=== PATIENT | female | born 1940 | race Caucasian/White ===

== ENCOUNTER 2020-12-27 12:52 | Inpatient (IN) | payer MEDICARE, SELFPAY ==
[~2020-12-27] VITALS: Ht 157.5 cm; Wt 68.1 kg
--- NOTE | 2020-12-27 12:52 | NUR ---
BIB MEDICS FROM HOME FOR CP/ ALERT, CALM, RESP UNLABORED, SKIN WARM AND DRY.
[2020-12-27 12:56] VITALS: BP_SYST 189
--- NOTE | 2020-12-27 13:00 | NUR ---
Patient to ER bed 4 to gown for evaluation. Side rails up. Report given to .
--- NOTE | 2020-12-27 13:15 | NUR ---
DR VYAS IN TO ASSESS
--- NOTE | 2020-12-27 13:26 | NUR ---
CXR, LABS OBTAINED, CALM, ALERT, RESP UNLABORED,
--- NOTE | 2020-12-27 13:48 | NUR ---
IV HL 22 GUAGE LT HAND, LABS SENT
[2020-12-27 13:49] LABS: EOSINOPHILS % (AUTO) 0.9 % (0.0-4.0); HEMATOCRIT 37.9 % (36-48); HEMOGLOBIN 12.9 g/dL (12.0-16.0); LYMPHOCYTES # (AUTO) 0.7 K/uL (1.0-5.5); LYMPHOCYTES % (AUTO) 27.8 % (20.5-51.5); MEAN CORPUSCULAR HEMOGLOBIN 30 pg (27-31); MEAN CORPUSCULAR HGB CONC 34 % (32-36); MEAN CORPUSCULAR VOLUME 89 fL (79.0-98.0); MONOCYTES # (AUTO) 0.5 K/uL (0.0-1.0); MONOCYTES % (AUTO) 19.3 % (1.7-9.3); NEUTROPHILS # (AUTO) 1.2 K/uL (1.8-7.7); PLATELET COUNT (AUTO) 137 K/uL (130-430); RED BLOOD CELL COUNT(AUTO) 4.25 MIL/uL (4.2-6.2); RED CELL DISTRIBUTION WIDTH 15.7 % (9.0-15.0); WHITE BLOOD COUNT (AUTO) 2.4 K/uL (4.8-10.8)
--- NOTE | 2020-12-27 13:52 | NUR ---
SITTING UP TALKING ON , NO DISTRESS, RESP UNLABORED. NO DISTRESS
[2020-12-27 13:55] LABS: ANION GAP 8 (5-15); CALCIUM 9.9 mg/dL (8.4-11.0); CHLORIDE 100 mmol/L (98-107); CREATININE 1.02 mg/dL (0.55-1.30); GLUCOSE 111 mg/dL (70-99); POTASSIUM 4.4 mmol/L (3.5-5.1); SODIUM SERUM 135 mmol/L (136-145); UREA NITROGEN, BLOOD 25 mg/dL (8-21)
[2020-12-27 14:01] LABS: ALANINE AMINOTRANSFERASE 24 U/L (12-78); ASPARTATE AMINOTRANSFERASE 35 U/L (10-37); LIPASE 189 U/L (73-393); TOTAL BILIRUBIN 0.4 mg/dL (0.0-1.0)
[2020-12-27] MEDS ORDERED: MORPHINE 2 MG/ML INJ. SYRINGE IVP ONE ×2 (15:15→21:45)
--- NOTE | 2020-12-27 16:24 | NUR ---
CONSENT SIGNED FOR CTA
[2020-12-27] MEDS ORDERED: IOHEXOL 350 mgI/mL, 150 ML INFUS..BTL IV ONE (16:39)
--- NOTE | 2020-12-27 17:13 | NUR ---
BACK FROM CTA OF CHEST. TOLERATED WELL. RESP UNLABORED
[2020-12-27] MEDS ORDERED: MORPHINE 4 MG INJ. 4 MG/ML VIAL IVP ONE (17:45)
--- NOTE | 2020-12-27 19:04 | NUR ---
UP TO BSC PT BEARING WEIGHT, CALM, ALERT, RESP UNLABORED, SB ON MONITOR
[2020-12-27] MEDS ORDERED: cefTRIAXone 1 GM in D5W 50 ML IV ONE (19:15)
[2020-12-27] MEDS ORDERED: AZITHROMYCIN 500 MG in NS 250 ML IV ONE (19:15)
--- NOTE | 2020-12-27 19:25 | NUR ---
assumed care of pt from alma dia. pt started on rocephin and zithromax
[2020-12-27] MEDS ORDERED: AZITHROMYCIN 500 MG/VIAL (ZITHROMAX) IV ONE (19:32)
[2020-12-27] MEDS ORDERED: cefTRIAXone 1 GM VIAL ONE (19:32)
[2020-12-27] MEDS ORDERED: CALCIUM CARBONATE 500 MG/ TAB.CHEW PO ONE (22:45)
[2020-12-27] MEDS ORDERED: FAMOTIDINE 20 MG TABLET ONE (23:29)
[2020-12-27] MEDS ORDERED: FAMOTIDINE 20 MG TABLET PO ONE (23:30)
[2020-12-28] MEDS ORDERED: LevALBUTEROL HCL 1.25 MG/0.5 ML *CONC.* VIAL.NEB (XOPENEX CONC.) INH PRN (00:15)
--- NOTE | 2020-12-28 00:22 | NUR ---
Patient will be admitted to care of DR. BASS. Admitted to TELE unit. Will go to room TBD. Belongings list completed. Complete and up to date summary report printed. SBAR report to be given at bedside with opportunity for questions.
--- NOTE | 2020-12-28 00:30 | NUR ---
PTS BELONGINGS LIST COMPLETE.
--- NOTE | 2020-12-28 00:30 | NUR ---
PT DOES NOT HAVE MEDICATION LIST. WILL HAVE IT TOMORROW
--- NOTE | 2020-12-28 00:30 | NUR ---
PT IS FULLCODE
--- NOTE | 2020-12-28 01:15 | NUR ---
Transfer to TELE 123B via ACLS protocol. Licensed nurse present. IV present no signs or symptoms of infiltration.
--- NOTE | 2020-12-28 01:29 | NUR ---
Admission Note Received patient from ER with diagnosis of PNA. Initial Plan of Care discussed-patient verbalized understanding. Oriented to room, call light, pain management and safety.
[2020-12-28 01:54] VITALS: BP_SYST 155
[2020-12-28 01:58] VITALS: BP_SYST 151
--- NOTE | 2020-12-28 04:00 | NUR ---
ROUNDS PATIENT ASLEEP, NO SIGNS OF DISCOMFORT. CHEST RISE AND FALL EVEN BILATERALLY. CALL LIGHT WITH PATIENT. WILL CONTINUE TO MONITOR.
--- NOTE | 2020-12-28 06:35 | NUR ---
CLOSING NOTES PATIENT IN BED, SLEEPING COMFORTABLY. NO S/S OF ACUTE DISTRESS. BREATHING EVEN AND UNLABORED. IV SITE REMAINS PATENT, NO SIGNS OF INFILTRATION OR INFECTION NOTED. ALL NEEDS MET THROUGHOUT SHIFT. FALL, SAFETY, AND ISOLATION PRECAUTIONS MAINTAINED THROUGHOUT SHIFT. WILL CONTINUE TO MONITOR UNTIL PATIENT CARE IS ENDORSED TO ONCOMING DAYSHIFT NURSE.
[2020-12-28 06:45] LABS: BASOPHILS % (AUTO) 1.3 % (0.0-2.0); EOSINOPHILS % (AUTO) 0.9 % (0.0-4.0); HEMATOCRIT 33.4 % (36-48); HEMOGLOBIN 11.4 g/dL (12.0-16.0); LYMPHOCYTES # (AUTO) 0.5 K/uL (1.0-5.5); LYMPHOCYTES % (AUTO) 22.7 % (20.5-51.5); MEAN CORPUSCULAR HEMOGLOBIN 30 pg (27-31); MEAN CORPUSCULAR HGB CONC 34 % (32-36); MEAN CORPUSCULAR VOLUME 88 fL (79.0-98.0); MONOCYTES # (AUTO) 0.5 K/uL (0.0-1.0); MONOCYTES % (AUTO) 21.8 % (1.7-9.3); NEUTROPHILS # (AUTO) 1.2 K/uL (1.8-7.7); NEUTROPHILS % (AUTO) 53.3 % (40.0-70.0); PLATELET COUNT (AUTO) 132 K/uL (130-430); RED BLOOD CELL COUNT(AUTO) 3.78 MIL/uL (4.2-6.2); RED CELL DISTRIBUTION WIDTH 15.8 % (9.0-15.0); WHITE BLOOD COUNT (AUTO) 2.2 K/uL (4.8-10.8)
[2020-12-28 07:33] LABS: ANION GAP 7 (5-15); CALCIUM 8.6 mg/dL (8.4-11.0); CHLORIDE 102 mmol/L (98-107); CREATININE 0.77 mg/dL (0.55-1.30); GLUCOSE 73 mg/dL (70-99); POTASSIUM 3.9 mmol/L (3.5-5.1); SODIUM SERUM 136 mmol/L (136-145); UREA NITROGEN, BLOOD 19 mg/dL (8-21)
[2020-12-28 07:46] LABS: ALANINE AMINOTRANSFERASE 21 U/L (12-78); ALBUMIN 3.3 g/dL (3.4-4.8); ASPARTATE AMINOTRANSFERASE 25 U/L (10-37); TOTAL BILIRUBIN 0.3 mg/dL (0.0-1.0)
--- NOTE | 2020-12-28 08:00 | NUR ---
OPENING NOTES AWAKE, ORIENTED. NO SHORTNESS OF BREATH ON ROOM AIR. COMPLAINED OF PAIN ON THE CHEST, WHICH RADIATES TO HER STOMACH AND BACK. WILL PAGE MD FOR MEDS. DISCUSSED PLAN OF CARE AND NEED FOR ISOLATION, VERBALIZED UNDERSTANDING. SAFETY CHECKS DONE. CALL LIGHT WITHIN REACH.
[2020-12-28 08:30] VITALS: BP_SYST 175
[2020-12-28] MEDS: AZITHROMYCIN 500 MG in NS 250 ML IV SCH (09:03)
[2020-12-28] MEDS ORDERED: AMLO2.5T50 PO (10:39)
[2020-12-28] MEDS ORDERED: PRO40 PO (10:39)
[2020-12-28] MEDS ORDERED: MEMA10TA PO (10:39)
[2020-12-28] MEDS ORDERED: ROSU10TA2 PO (10:39)
[2020-12-28] MEDS ORDERED: PRAV10TA37 PO (10:39)
[2020-12-28] MEDS ORDERED: LISI20TA30 PO (10:39)
[2020-12-28] MEDS ORDERED: FURO-149 PO (10:39)
[2020-12-28] MEDS ORDERED: DONE10TA44 PO (10:39)
[2020-12-28] MEDS: cefTRIAXone 1 GM in D5W 50 ML IV SCH (10:52)
--- NOTE | 2020-12-28 11:00 | NUR ---
ATTENDING MD DR BASS WAS PAGED, RE: PAIN MEDICATION. SPOKE TO ELY.
--- NOTE | 2020-12-28 11:27 | NUR ---
CONSULTATION PAGED/CALLED Reason for Consultation: [] CHEST PAIN Person Who was Notified: [] LUIS Consulting Physician: [] DR QUEVEDO Infrastructure Administrator Specialty: [] ORCHARD PRUNER Ordering Physician: [] DR STEINER
--- NOTE | 2020-12-28 11:29 | NUR ---
CONSULTATION PAGED/CALLED Reason for Consultation: [] PNA Person Who was Notified: [] ESTELA Consulting Physician: [] DR HAYWOOD Grain [employer] Farmworker Specialty: [] PULMO Ordering Physician: [] DR STEINER
[2020-12-28] MEDS ORDERED: lisinopriL 20 MG TABLET PO ONE (11:45)
[2020-12-28] MEDS ORDERED: PANTOPRAZOLE SODIUM 40 MG TAB PO ONE (11:45)
[2020-12-28] MEDS ORDERED: MEMANTINE HCL 5 MG TABLET PO ONE (11:45)
[2020-12-28] MEDS ORDERED: ATORVASTATIN 20 MG TABLET PO ONE (12:00)
[2020-12-28] MEDS ORDERED: HYDROXYCHLOROQUINE SULFATE 200 MG TABLET PO ONE (12:00)
[2020-12-28] MEDS ORDERED: POTASSIUM CHLORIDE 20 MEQ TAB.PRT.SR PO ONE (12:00)
[2020-12-28] MEDS ORDERED: IPRATROPIUM/ALBUTEROL SULFATE 3 ML AMPUL.NEB (DUONEB) INH PRN (12:00)
[2020-12-28] MEDS ORDERED: ACETAMINOPHEN 325 MG TABLET PO PRN (12:00)
[2020-12-28] MEDS ORDERED: PREGABALIN 25 MG CAPSULE (LYRICA) PO ONE (12:00)
[2020-12-28] MEDS ORDERED: ASPIRIN 81 MG TABLET(ECOTRIN) PO ONE (12:00)
[2020-12-28] MEDS ORDERED: POLYETHYLENE GLYCOL 3350, 17 GM/ POWD.PACK PO ONE (12:00)
[2020-12-28] MEDS ORDERED: CALCIUM CARBONATE 500 MG/ TAB.CHEW PO PRN (12:00)
[2020-12-28] MEDS ORDERED: MAG-AL HYDROX/SIMETH 30 ML UDC PO PRN (12:00)
[2020-12-28] MEDS ORDERED: LORATADINE 10 MG TABLET PO PRN (12:00)
[2020-12-28] MEDS ORDERED: NALOXONE HCL 0.4 MG/ML AMP (NARCAN) IVP PRN (12:00)
[2020-12-28] MEDS ORDERED: LORazepam 1 MG TABLET PO PRN (12:00)
[2020-12-28] MEDS ORDERED: CYCLOBENZAPRINE HCL 10 MG TABLET (FLEXERIL) PO PRN (12:00)
[2020-12-28] MEDS ORDERED: DOCUSATE SODIUM 100 MG CAPSULE PO ONE (12:00)
[2020-12-28] MEDS ORDERED: LACTOBACILLUS RHAMNOSUS GG 1 CAP CAPSULE PO ONE (12:00)
--- NOTE | 2020-12-28 12:00 | NUR ---
MED REC MED REC DONE. REVIEWED BY DR. STEINER. WILL ADMINISTER DUE MEDICATIONS. PLAQUENIL IS NOT AVAILABLE AT THE MOMENT, WAITING FOR PHARMACY.
[2020-12-28] MEDS: HYDROcodone/ACETAMIN 5-325 MG TAB (NORCO/ VICODIN) PO PRN ×2 (12:22→16:40)
[2020-12-28] MEDS: amLODIPine BESYLATE 5 MG TABLET PO ONE ×2 (12:24→12:55)
[2020-12-28 12:48] VITALS: BP_SYST 152
--- NOTE | 2020-12-28 13:30 | NUR ---
CM: faxed transfer to network order to [facility] . Per Dr Segura, the pt is stable for transfer. Addendum: 12/28/20 at 1723 by Shaq Duke RN late entry: per Marti/Jose: not transfer today. She will need top lift scourer note and echo result. Marti aware that the pt was admitted to floor today, and still pending consultation. Dr Segura aware.
[2020-12-28 16:53] VITALS: BP_SYST 165
--- NOTE | 2020-12-28 18:55 | NUR ---
CHEST PAIN REPORTED SUDDEN SHOOTING PAIN ON THE CHEST THAT RADIATES TO HER STOMACH AND HER BACK. PATIENT ALSO SAID SHE COULDN'T BREATH. BLOOD PRESSURE 190/76, PULSE 64 RESPIRATIONS 18, 95% ON ROOM AIR AND TEMP OF 97.3, SINUS RHYTHM ON THE MONITOR. GAVE 2 LITERS OF OXYGEN VIA NASAL CANNULA. PAGED DR. QUEVEDO.
--- NOTE | 2020-12-28 19:05 | NUR ---
Paged Dr. Lima s/w Dia
[2020-12-28] MEDS ORDERED: NITROGLYCERIN 0.4 MG TAB.SUBL SL PRN (19:15)
--- NOTE | 2020-12-28 19:41 | NUR ---
NITRO X - ONE TABLET SUB L. administer for chest discomfort as ordered , continue to monitor .
--- NOTE | 2020-12-28 20:00 | NUR ---
LORAZEPAM 0.5 MG po administer for anxiety continue to monitor .
[2020-12-28] MEDS: POLYETHYLENE GLYCOL 3350, 17 GM/ POWD.PACK PO SCH (20:24)
[2020-12-28] MEDS: PREGABALIN 25 MG CAPSULE (LYRICA) PO SCH (20:25)
[2020-12-28] MEDS: sulfASALAZINE 500 MG TABLET (AZULFIDINE) PO SCH (20:25)
[2020-12-28] MEDS: lisinopriL 20 MG TABLET PO SCH (20:25)
[2020-12-28] MEDS: DONEPEZIL HCL 5 MG TABLET (ARICEPT) PO SCH (20:26)
[2020-12-28] MEDS: DOCUSATE SODIUM 100 MG CAPSULE PO SCH (20:26)
[2020-12-28] MEDS: NORTRIPTYLINE HCL 10 MG CAPSULE PO SCH (20:27)
[2020-12-28] MEDS: amLODIPine BESYLATE 5 MG TABLET PO SCH (20:27)
[2020-12-28] MEDS: MEMANTINE HCL 5 MG TABLET PO SCH (20:27)
[2020-12-28] MEDS: LACTOBACILLUS RHAMNOSUS GG 1 CAP CAPSULE PO SCH (20:28)
[2020-12-28 20:30] VITALS: BP_SYST 159
--- NOTE | 2020-12-28 21:24 | NUR ---
NORVASC 2.5 MG po administer for HTN
--- NOTE | 2020-12-28 21:25 | NUR ---
PRINIVIL 20 MG PO ADMINISTER FOR HYPERTENSION as ordered .
[2020-12-29 00:15] VITALS: BP_SYST 145
--- NOTE | 2020-12-29 00:45 | NUR ---
Hourly Rounding patient Resting is verbally Responsive sips of water encouraged HOB elevated assist for position change & tolerated .
--- NOTE | 2020-12-29 05:15 | NUR ---
Hourly Rounding patient Resting chest movement symmetrical call prather with patient .
[2020-12-29 06:52] LABS: BASOPHILS % (AUTO) 1.3 % (0.0-2.0); EOSINOPHILS % (AUTO) 1.4 % (0.0-4.0); HEMATOCRIT 34.1 % (36-48); HEMOGLOBIN 11.5 g/dL (12.0-16.0); LYMPHOCYTES # (AUTO) 0.6 K/uL (1.0-5.5); LYMPHOCYTES % (AUTO) 23.7 % (20.5-51.5); MEAN CORPUSCULAR HEMOGLOBIN 30 pg (27-31); MEAN CORPUSCULAR HGB CONC 34 % (32-36); MEAN CORPUSCULAR VOLUME 89 fL (79.0-98.0); MONOCYTES # (AUTO) 0.5 K/uL (0.0-1.0); MONOCYTES % (AUTO) 19.4 % (1.7-9.3); NEUTROPHILS # (AUTO) 1.3 K/uL (1.8-7.7); NEUTROPHILS % (AUTO) 54.2 % (40.0-70.0); PLATELET COUNT (AUTO) 131 K/uL (130-430); RED BLOOD CELL COUNT(AUTO) 3.85 MIL/uL (4.2-6.2); RED CELL DISTRIBUTION WIDTH 15.4 % (9.0-15.0); WHITE BLOOD COUNT (AUTO) 2.4 K/uL (4.8-10.8)
[2020-12-29 07:00] LABS: ANION GAP 4 (5-15); CALCIUM 8.1 mg/dL (8.4-11.0); CHLORIDE 101 mmol/L (98-107); CREATININE 0.77 mg/dL (0.55-1.30); GLUCOSE 89 mg/dL (70-99); POTASSIUM 4.1 mmol/L (3.5-5.1); SODIUM SERUM 133 mmol/L (136-145); UREA NITROGEN, BLOOD 11 mg/dL (8-21)
[2020-12-29 08:00] VITALS: BP_SYST 158
--- NOTE | 2020-12-29 08:00 | NUR ---
OPENING NOTES ALERT AND ORIENTED. PAIN ON THE CHEST IS CONTROLLED AT THIS TIME. NO SHORTNESS OF BREATH ON ROOM AIR. IV ON RIGHT FOREARM INTACT. PLAN OF CARE AND ISOLATION PRECAUTIONS EXPLAINED TO PATIENT, VERBALIZED UNDERSTANDING. SAFETY CHECKS DONE. CALL LIGHT WITHIN REACH. WILL MONITOR.
[2020-12-29] MEDS ORDERED: HYDROXYCHLOROQUINE SULFATE 200 MG TABLET PO SCH (09:00)
[2020-12-29] MEDS ORDERED: FUROSEMIDE 40 MG TABLET PO SCH (09:00)
[2020-12-29] MEDS ORDERED: CHOLECALCIFEROL (VITAMIN D3) 5,000 UNIT TABLET PO SCH (09:00)
[2020-12-29] MEDS ORDERED: ATORVASTATIN 20 MG TABLET PO SCH (09:00)
[2020-12-29] MEDS ORDERED: PANTOPRAZOLE SODIUM 40 MG TAB PO SCH (09:00)
[2020-12-29] MEDS ORDERED: FLUTICASONE PROPIONATE 50 mCg/SPRAY 16 GM NS SCH (09:00)
[2020-12-29] MEDS ORDERED: POTASSIUM CHLORIDE 20 MEQ TAB.PRT.SR PO SCH (09:00)
[2020-12-29] MEDS ORDERED: ASPIRIN 81 MG TABLET(ECOTRIN) PO SCH (09:00)
[2020-12-29] MEDS: AZITHROMYCIN 500 MG in NS 250 ML IV SCH (09:05)
[2020-12-29] MEDS: cefTRIAXone 1 GM in D5W 50 ML IV SCH (09:06)
[2020-12-29] MEDS: POLYETHYLENE GLYCOL 3350, 17 GM/ POWD.PACK PO SCH ×2 (09:06→20:39)
[2020-12-29] MEDS: LACTOBACILLUS RHAMNOSUS GG 1 CAP CAPSULE PO SCH ×2 (09:07→20:38)
[2020-12-29] MEDS: sulfASALAZINE 500 MG TABLET (AZULFIDINE) PO SCH ×2 (09:07→20:38)
[2020-12-29] MEDS: lisinopriL 20 MG TABLET PO SCH ×2 (09:08→20:40)
[2020-12-29] MEDS: DOCUSATE SODIUM 100 MG CAPSULE PO SCH ×2 (09:09→20:38)
[2020-12-29] MEDS: MEMANTINE HCL 5 MG TABLET PO SCH ×2 (09:09→20:39)
[2020-12-29] MEDS: amLODIPine BESYLATE 5 MG TABLET PO SCH ×2 (09:10→20:40)
[2020-12-29] MEDS: PREGABALIN 25 MG CAPSULE (LYRICA) PO SCH ×2 (09:11→20:39)
--- NOTE | 2020-12-29 09:45 | NUR ---
CM: faxed cardiology and pulmo progress notes to Marti/Jose. Dr. Lima recommends pt dc home with PO meds. Addendum: 12/29/20 at 1538 by Shaq Duke RN late entry for 1300: unable to LVM to Marti, her mail box is full. 1534: called from Marti, I updated clinicals, Pending PCR, Echo not printing result yet. Marti will consult with her md for possible transfer vs dc home. Dr Imelda willson.
--- NOTE | 2020-12-29 09:48 | NUR ---
DCP: to home per dr. Lima 's note. Addendum: 12/29/20 at 0949 by Shaq Duke RN Disposition 01
[2020-12-29 10:12] LABS: FREE T4 (FREE THYROXINE) 1.3 ng/dl (0.8-1.5); THYROID STIMULATING HORMONE 1.33 uIu/mL (0.36-3.74)
--- NOTE | 2020-12-29 11:00 | NUR ---
ROUNDS WANTS TO GO HOME; ASKS FOR STATUS. EXPLAINED TO PATIENT THAT WE ARE STILL WAITING FOR THE PCR RESULT AND A DISCHARGE ORDER FROM THE PRIMARY DOCTOR. PT VERBALIZED UNDERSTANDING. SAFETY CHECKS DONE. NEEDS ATTENDED.
[2020-12-29 12:58] VITALS: BP_SYST 150
--- NOTE | 2020-12-29 13:40 | NUR ---
HEADACHE PATIENT ASKED FOR TYLENOL FOR HEADACHE. ADMINISTERED.
[2020-12-29] MEDS: HYDROcodone/ACETAMIN 5-325 MG TAB (NORCO/ VICODIN) PO PRN (16:23)
--- NOTE | 2020-12-29 16:30 | NUR ---
BACK PAIN COMPLAINED OF A 6/10 BACK PAIN, NON-RADIATING. PATIENT ASKED FOR A NORCO. ADMINISTERED. EXPLAINED FALL RISK, PATIENT VERBALIZED UNDERSTANDING.
[2020-12-29 16:35] VITALS: BP_SYST 155
--- NOTE | 2020-12-29 20:23 | NUR ---
Juanito Pitts s/w Abril
--- NOTE | 2020-12-29 20:23 | NUR ---
CALLED FAMILY: CALLED AND TALKED WITH LILIAN FELIX , NOTIFIED HIM THAT PT WILL BE TRANSFERRING TO [facility] . HE AGREED WITH THE TRANSFER .
[2020-12-29] MEDS: DONEPEZIL HCL 5 MG TABLET (ARICEPT) PO SCH (20:39)
[2020-12-29] MEDS: NORTRIPTYLINE HCL 10 MG CAPSULE PO SCH (20:39)
[2020-12-29 20:51] VITALS: BP_SYST 168
--- NOTE | 2020-12-29 21:07 | NUR ---
Second call for Dr. Pitts s/w Abril
--- NOTE | 2020-12-29 21:41 | NUR ---
pt transferred to [facility] via [facility]. pt aox4 able to make needs known. rr even and unlabored on ra. report given to Rozina Lopez. pt received all paperwork, education 2100 meds. pt has all belongings.
== END 2020-12-29 21:41 | disposition short-term general hospital (02) | DRG 195 ==
LOC: SED 12:52 → STU 12-28 00:15
PROVIDERS: ADMIT Family Medicine; ATTEND Family Medicine
DX: J18.9 Pneumonia, unspecified organism (principal); R07.89 Other chest pain; E03.9 Hypothyroidism, unspecified; E78.5 Hyperlipidemia, unspecified; M48.00 Spinal stenosis, site unspecified; M54.10 Radiculopathy, site unspecified; Z20.822 Contact with and (suspected) exposure to COVID-19; M06.9 Rheumatoid arthritis, unspecified; I25.10 Atherosclerotic heart disease of native coronary artery without angina pectoris; K21.9 Gastro-esophageal reflux disease without esophagitis; G89.29 Other chronic pain; F03.90 Unspecified dementia, unspecified severity, without behavioral disturbance, psychotic disturbance, mood disturbance, and anxiety; K59.09 Other constipation; M17.12 Unilateral primary osteoarthritis, left knee; E11.9 Type 2 diabetes mellitus without complications; M35.9 Systemic involvement of connective tissue, unspecified; I10 Essential (primary) hypertension; D72.819 Decreased white blood cell count, unspecified; M19.90 Unspecified osteoarthritis, unspecified site; Z95.0 Presence of cardiac pacemaker; Z85.118 Personal history of other malignant neoplasm of bronchus and lung; Z90.2 Acquired absence of lung [part of]; Z95.5 Presence of coronary angioplasty implant and graft; Z87.891 Personal history of nicotine dependence; Z90.710 Acquired absence of both cervix and uterus; Z79.899 Other long term (current) drug therapy; I25.2 Old myocardial infarction; Z88.5 Allergy status to narcotic agent; Z88.8 Allergy status to other drugs, medicaments and biological substances; Z86.73 Personal history of transient ischemic attack (TIA), and cerebral infarction without residual deficits; Z90.49 Acquired absence of other specified parts of digestive tract; Z91.048 Other nonmedicinal substance allergy status
CPT/HCPCS: 36415; 71045; 71275; 76376; 80048; 80053; 82550; 83605; 83690; 83880; 84439; 84443; 84484; 85025; 85379; 87040-TC; 93005; 93306; 96365; 96368; 96375; 96376; 97116-GP; 97163-GP; 99285; G0378; J0456; J0696; J2270; J7050; J7060; Q9967; U0003